=== PATIENT | male | born 1945 | race Caucasian/White ===

== ENCOUNTER 2025-02-18 15:47 | Emergency (ER) | payer MEDICARE, MEDICAID ==
[~2025-02-18] VITALS: Ht 154.9 cm; Wt 63.0 kg
[2025-02-18 15:50] VITALS: BP 142/84; PULSE 74; RESP 18; TEMP 98.2; O2SAT 99
== END 2025-02-18 19:52 | disposition left against medical advice (07) ==
LOC: ER 15:47
DX: R10.A0 Flank pain, unspecified side (principal); Z53.21 Procedure and treatment not carried out due to patient leaving prior to being seen by health care provider
CPT/HCPCS: 99281